=== PATIENT | male | born 1975 | race Caucasian/White ===

== ENCOUNTER 2021-04-23 09:47 | Outpatient (CLI) | payer OTHER ==
[2021-04-23 17:51] LABS: SARS-CoV-2 PCR by NAA Not Detected (NotDetected)
== END 2021-04-23 09:48 | disposition home or self-care (01) ==
LOC: CSHLAB 09:47
PROVIDERS: ATTEND Internal Medicine Gastroenterology
DX: Z20.822 Contact with and (suspected) exposure to COVID-19 (principal); K63.5 Polyp of colon
CPT/HCPCS: 87635; U0003; U0005